=== PATIENT | male | born 1965 | race Caucasian/White ===

== ENCOUNTER → 2016-07-04 | Outpatient (CLI) | payer OTHER ==
--- NOTE | 2016-07-04 12:11 | RAD ---
Indication 2 lumps right groin. Targeted ultrasound to the right groin, just lateral to the penis, was performed. There are 2 shadowing masses, perhaps representing calcified lymph nodes. The largest measures approximately 8 mm in greatest dimension and the smaller approximately 6 mm. The etiology is unclear. Clinical significance similarly is unclear. IMPRESSION: 2 shadowing masses, the largest measuring 8 mm, just lateral to the penis in the right groin. These may represent areas of calcification perhaps lymph nodes.
== END | disposition home or self-care (01) ==
LOC: US 10:43
PROVIDERS: ATTEND Nurse Practitioner
DX: R19.09 Other intra-abdominal and pelvic swelling, mass and lump (principal)
CPT/HCPCS: 76881

== ENCOUNTER 2021-03-11 22:53 | Emergency (ER) | payer SELFPAY ==
[~2021-03-11] VITALS: Ht 162.6 cm; Wt 68.0 kg
--- NOTE | 2021-03-11 23:15 | PHYS DOC ---
Adult General HPI HPI Patient is a 55-year-old male who presents with toe pain, 4 out of 10, sharp in nature after cutting it on a piece of wood when stepping down just before coming to the emergency department. States he cannot remember his last tetanus vaccination. Denies any other injuries. Review of Systems Review of Systems Review of systems otherwise unremarkable except noted in HPI Physical Exam Physical Exam Constitutional: Well developed, well nourished, no acute distress, non-toxic appearance. [] HENT: Normocephalic, atraumatic, bilateral external ears normal, oropharynx moist, no oral exudates, nose normal. [] Eyes: PERRLA, EOMI, conjunctiva normal, no discharge. [] Neck: Normal range of motion, no tenderness, supple, no stridor. [] Cardiovascular:Heart rate regular rhythm, no murmur [] Lungs & Thorax: Bilateral breath sounds clear to auscultation [] Abdomen: Bowel sounds normal, soft, no tenderness, no masses, no pulsatile masses. [] Skin: Warm, dry, no erythema, no rash. [] Back: No tenderness, no CVA tenderness. [] Extremities: 2 cm linear laceration at the base of the right great toe, bleeding controlled, neurovascular exam intact Neurologic: Alert and oriented X 3, no focal deficits noted. [] Psychologic: Affect normal, judgement normal, mood normal. [] EKG EKG [] Radiology/Procedures Radiology/Procedures [] 2 cm linear laceration at the base of the great toe cleaned extensively with sterile water. L ET placed for topical anesthesia. Anesthesia achieved. 4 sutures placed of 3-0 Ethilon and 1 suture of 4-0 Ethilon without complication. Cleaned again. Placed a toe splint on for support and pain relief Heart Score C/O Chest Pain: No Risk Factors: Risk Factors: DM, Current or recent (<one month) smoker, HTN, HLP, family history of CAD, obesity. Risk Scores: Risk Factors: DM, Current or recent (<one month) smoker, HTN, HLP, family history of CAD, obesity. Course & Med Decision Making Course & Med Decision Making Patient is a 55-year-old male who presents with toe pain and laceration Vital signs not concerning. Physical exam noted above. Tetanus updated. Started on antibiotics in the emergency department. Repaired with suture. Bandaged. Discussed wound management given education on wound management for home. Advised to follow-up with primary care physician in 5 to 7 days for a wound check and suture removal. Gave return precautions to the ED. Patient agreeable, verbalized understanding and agree with plan of discharge. [] Dragon Disclaimer Dragon Disclaimer This electronic medical record was generated, in whole or in part, using a voice recognition dictation system. Departure Departure: Impression: Primary Impression: Toe laceration Disposition: HOME / SELF CARE / HOMELESS Condition: GOOD Referrals: PCP,CHIQUITA (PCP) KENJI ANDREWS MD Patient Instructions: Laceration Care, Adult Additional Instructions: Thank you for coming into the emergency department tonight and allowing us to take care of you. Please read the attached information carefully and go back over some of the things we discussed. Please take your antibiotics as prescribed and until gone. Please keep the area clean, dry and bandaged. Please follow-up with a primary care physician in 5 to 7 days for a wound check and suture removal. If you are unable to get into a primary care physician you can return to the emergency department for this. Please come back to the emergency department with new or concerning symptoms as we discussed. Scripts Cephalexin (KEFLEX) 500 Mg Capsule 1 CAP PO TID for wound for 7 Days, #21 CAP Prov: FELTON ROSARIO MD 03/12/21 FELTON ROSARIO MD Mar 11, 2021 23:15
[2021-03-12] MEDS ORDERED: DIPH,PERTUSS(ACELL),TET VAC/PF 0.5 ML SYRINGE. VAX IM ONE (00:30)
[2021-03-12] MEDS ORDERED: CEPHALEXIN 250 MG CAPSULE PO ONE (00:30)
[2021-03-12] MEDS ORDERED: LIDOCAINE/EPI/TETRACAINE TOPICAL GEL 3 ML. TP ONE (00:30)
[2021-03-12] MEDS ORDERED: CEPH500C PO (01:23)
[2021-03-12] MEDS ORDERED: ACETAMINOPHEN/CODEINE 300/30MG 4TABLET STARTPACK. PO ONE (01:30)
[2021-03-12] MEDS ORDERED: oxyCODONE/APAP 5/325 1 TAB TABLET ONE (01:40)
[2021-03-12] MEDS ORDERED: oxyCODONE/APAP 5/325 1 TAB TABLET PO ONE (06:15)
== END 2021-03-12 01:45 | disposition home or self-care (01) ==
LOC: ER 22:53
DX: S91.111A Laceration without foreign body of right great toe without damage to nail, initial encounter (principal); W26.8XXA Contact with other sharp object(s), not elsewhere classified, initial encounter; Y93.89 Activity, other specified; Y92.89 Other specified places as the place of occurrence of the external cause; Y99.8 Other external cause status
CPT/HCPCS: 12001; 90471; 90715; 99283